=== PATIENT | male | born 1960 | race Caucasian/White ===

== ENCOUNTER 2017-08-09 16:45 | Emergency (ER) | payer BC ==
[~2017-08-09] VITALS: Ht 175.3 cm; Wt 97.5 kg
[2017-08-09] MEDS ORDERED: TETANUS,DIPTH,PERTUSS P/F (BOOSTRIX) 0.5 ML VIAL IM STA (17:19)
[2017-08-09] MEDS ORDERED: LIDOCAINE 1% INJ 20 ML (XYLOCAINE) VIAL INJ STA (17:19)
--- NOTE | 2017-08-09 17:42 | Diagnostic Imaging Report ---
INDICATION: Laceration. FINDINGS: No retained opaque foreign body or fracture. There are soft tissue irregularities at the dorsum of the distal phalanx of the second finger with abnormal elevation and angulation of the nail. Tiny radiopacity projecting dorsal to the distal tip of the distal phalanx may reflect a very small flake of avulsed cortical bone. IMPRESSION: There may be a small flake of avulsed cortical bone of well less than 1 mm thickness along the dorsal aspect terminal tuft of the second finger where there is overlying soft tissue and nail injury. No findings suggestive of a retained metallic foreign body, and no articular involvement. Dictated by: Dictated on workstation # [id number]
[2017-08-09] MEDS ORDERED: SULF1TAB35 PO (18:41)
--- NOTE | 2017-08-09 18:41 | ED Upper Extremity ---
General Chief Complaint: Upper Extremity Stated Complaint: LT 2ND FINGER LACERATION BY TABLE SAW Nursing Triage Note: PT HAS AVULSED R FIRST FINGER NAIL AND PAIN IN FINGER AREA FROM TABLE SAW WOOD HITTING FINGER. Nursing Sepsis Screen: No Definite Risk Source: patient Exam Limitations: no limitations History of Present Illness Time seen by provider: 17:19 Initial Comments This 56-year-old gentleman presents to the emergency room with an avulsion of the left thumb nail. The finger was struck by a board that jumped while using a power saw. Bleeding is under control. The nail is still attached on the lateral edge of the nail bed. Patient had a brief syncopal episode after the event but denies any head injury. Allergies and Home Medications Allergies Coded Allergies: Penicillins (Verified Allergy, Unknown, 08/09/17) Home Medications Sulfamethoxazole/Trimethoprim 1 Each Tablet, 1 EACH PO BID, #14 Prescribed by: ARUNA IVAN on 08/09/17 9660 Constitutional: no symptoms reported EENTM: no symptoms reported Respiratory: no symptoms reported Cardiovascular: no symptoms reported Gastrointestinal: no symptoms reported Genitourinary: no symptoms reported Musculoskeletal: see HPI Skin: see HPI Psychiatric/Neurological: See HPI Past Afugtsy-Xuxkfa-Sfwldp Hx Patient Social History Alcohol Use: Denies Use Recreational Drug Use: No Smoking Status: Never a Smoker Recent Foreign Travel: No Contact w/Someone Who Travel: No Recent Infectious Disease Expo: No Recent Hopitalizations: No Physical Abuse: No Sexual Abuse: No Immunizations Up To Date Tetanus Booster (TDap): More than 5yrs Seasonal Allergies Seasonal Allergies: Yes Surgeries History of Surgeries: No Respiratory History of Respiratory Disorde: No Cardiovascular History of Cardiac Disorders: No Neurological History of Neurological Disord: No Reproductive System Hx Reproductive Disorders: No Genitourinary History of Genitourinary Disor: No Gastrointestinal History of Gastrointestinal Di: No Musculoskeletal History of Musculoskeletal Dis: No Endocrine History of Endocrine Disorders: No HEENT History of HEENT Disorders: No Cancer History of Cancer: No Psychosocial History of Psychiatric Problem: No Suicide Risk Score: 0 Integumentary History of Skin or Integumenta: No Physical Exam Vital Signs Vital Sign - Last 12Hours 08/09/17 17:00 Temp 97.4 Pulse 77 Resp 18 B/P (MAP) 122/75 Pulse Ox 95 Capillary Refill : Less Than 3 Seconds General Appearance: WD/WN, no apparent distress HEENT: normal ENT inspection Cardiovascular: regular rate, rhythm, no edema, no murmur Respiratory: normal breath sounds, no respiratory distress Wrist: Yes normal inspection, Yes no evidence of injury Hand: Left (partial avulsion of the left thumb nail. The medial aspect has been pulled from the bed but the lateral aspect remains intact. The nail is lifted from the base. 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 Skin at the base of thumb was then cleaned with alcohol. Digital block was then performed on the thumb with approximately 8 mL of lidocaine. wound was irrigated with a liter of normal saline. Betadine prep was applied. Nail base was reinserted into the nail bed. Nail was secured bilaterally with 3-0 Vicryl sutures, one on each side. Wound was then dressed with nonstick dressing by nursing staff. Progress/Results/Core Measures Results/Orders Vital Signs/I&O Blood Pressure Mean: 91 Diagnostic Imaging Diagonstic Imaging: Xray Plain Films/CT/US/NM/MRI: hand Comments x-ray viewed by me and report reviewed. See report below: NAME: KAREY [facility]ILLON [facility] REC#: [id number] PT STATUS: DEP ER : 1960 PHYSICIAN: FLORA LEE [facility] ADMIT DATE: 08/09/17/ER Signed Date of Exam: 08/09/17 FINGER(S) INDICATION: Laceration. FINDINGS: No retained opaque foreign body or fracture. There are soft tissue irregularities at the dorsum of the distal phalanx of the second finger with abnormal elevation and angulation of the nail. Tiny radiopacity projecting dorsal to the distal tip of the distal phalanx may reflect a very small flake of avulsed cortical bone. IMPRESSION: There may be a small flake of avulsed cortical bone of well less than 1 mm thickness along the dorsal aspect terminal tuft of the second finger where there is overlying soft tissue and nail injury. No findings suggestive of a retained metallic foreign body, and no articular involvement. Dictated by: Dictated on workstation # [id number] Dict: 08/09/17 1734 Trans: 08/09/171945 Interpreted by: YE RIOJAS Electronically signed by: YE RIOJAS 08/09/171945 Departure Impression Impression: Primary Impression: Nail avulsion, finger Qualified Codes: S61.309A - Unspecified open wound of unspecified finger with damage to nail, initial encounter Additional Impression: Closed fracture of tuft of distal phalanx of finger Disposition: 01 HOME, SELF-CARE Condition: Improved Departure-Patient Inst. Decision time for Depature: 18:30 Referrals: SUYAPA GLEZ MD (PCP/Family) Primary Care Physician Patient Instructions: Nail Avulsion Add. Discharge Instructions: Keep the wound clean and dry except for normal handwashing and showering. Avoid submersion for the first 2 weeks. Complete your antibiotic as prescribed. You may use ibuprofen up to 800 mg every 8 hours as needed for pain. Add Tylenol (acetaminophen) up to 1000 mg every 6 hours as needed for additional pain relief. You may apply antibiotic ointment and sterile dressing to cover whenever needed. You may additionally apply a splint to protect the nail. Antibiotic ointment or Vaseline will help prevent the dressing from sticking to the wound. Your stitches will dissolve in 1-2 weeks. Protect your nail from further disruption for at least 2 weeks to allow the new nail to grow and without disruption. The old nail will eventually slough off. Return to care if you notice symptoms of infection such as increasing redness, increasing swelling, puslike drainage, worsening pain, or fever. Icing in 20 minute intervals and elevation should help with pain and swelling. All discharge instructions reviewed with patient and/or family. Voiced understanding. Scripts Sulfamethoxazole/Trimethoprim (Bactrim Ds Tablet) 1 Each Tablet 1 EACH PO BID, #14 TAB Prov: ARUNA RUSSO MD 08/09/17 ARUNA RUSSO MD Aug 09, 2017 18:41
[2017-08-09 18:50] VITALS: BP 122/72
== END 2017-08-09 18:50 | disposition home or self-care (01) ==
LOC: EDUNIT# 16:45 → ER 16:47
DX: S62.522A Displaced fracture of distal phalanx of left thumb, initial encounter for closed fracture (principal); W23.1XXA Caught, crushed, jammed, or pinched between stationary objects, initial encounter
CPT/HCPCS: 73140; 90471; 90715

== ENCOUNTER 2019-12-30 08:25 | Outpatient (RCR) | payer BC ==
[~2019-12-30 08:25] MED LIST: SULF1TAB35 PO
== END 2020-01-13 10:58 | disposition home or self-care (01) ==
PROVIDERS: ATTEND Nurse Practitioner Family
DX: M54.12 Radiculopathy, cervical region (principal); K21.9 Gastro-esophageal reflux disease without esophagitis; R01.1 Cardiac murmur, unspecified

== ENCOUNTER 2021-05-19 14:26 | Emergency (ER) | payer SELFPAY ==
[~2021-05-19] VITALS: Ht 175.2 cm; Wt 100.0 kg
[~2021-05-19 14:26] MED LIST changes: -SULF1TAB35 PO; +SULF1TAB38 PO
[2021-05-19] MEDS ORDERED: ASPIRIN 81 MG CHEW (CHILDREN'S ASA) PO ONE (14:45)
[2021-05-19 14:55] LABS: BASOPHILS % (AUTO) 1 % (0-10); EOSINOPHILS % (AUTO) 0 % (0-10); HEMATOCRIT 44 % (40-54); HEMOGLOBIN 14.7 g/dL (13.3-17.7); LYMPHOCYTES # (AUTO) 0.9 10^3/uL (1.0-4.0); LYMPHOCYTES % (AUTO) 14 % (12-44); MEAN CORPUSCULAR HEMOGLOBIN 29 pg (25-34); MEAN CORPUSCULAR HGB CONC 33 g/dL (32-36); MEAN CORPUSCULAR VOLUME 88 fL (80-99); MEAN PLATELET VOLUME 8.5 fL (9.0-12.2); MONOCYTES # (AUTO) 0.9 10^3/uL (0.0-1.0); MONOCYTES % (AUTO) 14 % (0-12); NEUTROPHILS # (AUTO) 4.6 10^3/uL (1.8-7.8); NEUTROPHILS % (AUTO) 71 % (42-75); PLATELET COUNT 215 10^3/uL (130-400); WHITE BLOOD COUNT 6.6 10^3/uL (4.3-11.0)
[2021-05-19] MEDS ORDERED: LACTATED RINGERS 1,000 ML IV SCH (15:00)
[2021-05-19] MEDS ORDERED: ONDANSETRON 4 MG/2 ML (SDV) Z0FRAN IVP ONE (15:00)
[2021-05-19 15:03] LABS: ALBUMIN 4.4 GM/DL (3.2-4.5)
[2021-05-19 15:04] LABS: CHLORIDE 106 MMOL/L (98-107); POTASSIUM 3.8 MMOL/L (3.6-5.0); SODIUM 140 MMOL/L (135-145)
[2021-05-19 15:06] LABS: GLUCOSE 159 MG/DL (70-105); TOTAL PROTEIN 6.9 GM/DL (6.4-8.2)
[2021-05-19 15:07] LABS: CARBON DIOXIDE 21 MMOL/L (21-32); INR 1.1 (0.8-1.4); PROTHROMBIN TIME PATIENT 14.6 SEC (12.2-14.7)
[2021-05-19 15:08] LABS: BILIRUBIN,TOTAL 1.1 MG/DL (0.1-1.0)
[2021-05-19 15:09] LABS: ALKALINE PHOSPHATASE 63 U/L (40-136); CREATININE SERUM 1.15 MG/DL (0.60-1.30); GFR ESTIMATED 65
[2021-05-19 15:11] LABS: BUN/CREATININE RATIO 9
[2021-05-19 15:12] LABS: ALANINE AMINOTRANSFERASE 27 U/L (0-55)
--- NOTE | 2021-05-19 15:24 | Diagnostic Imaging Report ---
INDICATION: Chest pain. COMPARISON: Exam compared with two-view radiograph of the chest of 09/25/2012. FINDINGS: The heart size is increased. There is vascular congestion centrally. There is no pulmonary edema or pneumonia, however. No effusion or pneumothorax. IMPRESSION: Increased heart size and central venous distention but no burt edema, pleural fluid, or pneumonia. Dictated by: Dictated on workstation # [id number]
--- NOTE | 2021-05-19 16:02 | ED General ---
General Chief Complaint: General Problems/Pain Stated Complaint: COVID SYMPTOMS Nursing Triage Note: Pt wheeled into ER with complaint of Malaise, Diaphoresis, Nausea x1 day. 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 After getting the chair home and sitting in a bit, I started feeling like shit. The chair smelt like chemicals or had a mold smell to it'. Pt denies chest pain or being in contact with covid patient. Pt is extremely diaphoretic upon arrival. Source of Information: Patient Exam Limitations: No Limitations (REGINO ALBARRAN APRN) History of Present Illness Date Seen by Provider: May 19, 2021 Time Seen by Provider: 15:57 Initial Comments Sent to ER by Dr. Glez's office where he presented with malaise diaphoresis and nausea for 1 day. Timing/Duration: 1-2 Days Severity: Moderate Associated Systoms: Cough (REGINO ALBARRAN APRN) Allergies and Home Medications Allergies Coded Allergies: Penicillins (Verified Allergy, Unknown, 08/09/17) Home Medications Sulfamethoxazole/Trimethoprim 1 Each Tablet, 1 EACH PO BID Prescribed by: ARUNA IVAN on 08/09/17 1841 Patient Home Medication List Home Medication List Reviewed: Yes (REGINO ALBARRAN APRN) Review of Systems Review of Systems Constitutional: see HPI EENTM: see HPI Respiratory: see HPI Cardiovascular: no symptoms reported Genitourinary: no symptoms reported Musculoskeletal: no symptoms reported Skin: no symptoms reported Psychiatric/Neurological: No Symptoms Reported Hematologic/Lymphatic: No Symptoms Reported Immunological/Allergic: no symptoms reported (REGINO ALBARRAN APRN) Past Dnybiwf-Flvjyu-Qqptwp Hx Patient Social History Tobacco Use?: No Use of E-Cig and/or Vaping dev: No Substance use?: No Alcohol Use?: No Pt feels they are or have been: No (REGINO ALBARRAN APRN) Immunizations Up To Date Tetanus Booster (TDap): More than 5yrs Influenza Vaccine Up-to-Date: No; Not Current (REGINO ALBARRAN APRN) Seasonal Allergies Seasonal Allergies: Yes (REGINO ALBARRAN APRN) Past Medical History Surgeries: No Respiratory: No Cardiac: No Neurological: No Reproductive Disorders: No Genitourinary: No Gastrointestinal: No Musculoskeletal: No Endocrine: No HEENT: No Cancer: No Psychosocial: No Integumentary: No (REGINO ALBARRAN APRN) Physical Exam Vital Signs Vital Signs - First Documented 05/19/21 14:36 Temp 37.2 Pulse 77 Resp 20 B/P (MAP) 118/90 (99) Pulse Ox 96 O2 Delivery Room Air (ARUNA RUSSO MD) Vital Signs Capillary Refill : Less Than 3 Seconds (REGINO ALBARRAN APRN) Height, Weight, BMI Height: 5'9.00" Weight: 215lbs. oz. 97.324359cg; 32.00 BMI Method:Stated General Appearance: No Apparent Distress, WD/WN, Other (Feels much better at this time was diaphoretic on arrival likely secondary to his fever breaking. 97% on room air. He is interested in Regeneron monoclonal antibody. I will give him information on this in the form of a fact sheet, we will arrange for Regeneron infusion on Sunday.) Eyes: Bilateral Eye Normal Inspection, Bilateral Eye PERRL, Bilateral Eye EOMI HEENT: PERRL/EOMI, TMs Normal Neck: Full Range of Motion, Normal Inspection Respiratory: No Accessory Muscle Use, No Respiratory Distress Cardiovascular: Regular Rate, Rhythm, Normal Peripheral Pulses Gastrointestinal: Normal Bowel Sounds, Non Tender, Soft Extremity: Normal Capillary Refill Neurologic/Psychiatric: Alert, Oriented x3 Skin: Normal Color, Warm/Dry (REGINO ALBARRAN APRN) Progress/Results/Core Measures Suspected Sepsis SIRS Temperature: Pulse: 77 Respiratory Rate: 20 Laboratory Tests 05/19/21 14:40: White Blood Count 6.6 Blood Pressure 118 /90 Mean: 99 Laboratory Tests 05/19/21 14:40: Creatinine 1.15, INR Comment 1.1, Platelet Count 215, Total Bilirubin 1.1H (REGINO ALBARRAN APRN) Results/Orders Lab Results Laboratory Tests Test 05/19/21 14:40 Range/Units White Blood Count 6.6 4.3-11.0 10^3/uL Red Blood Count 5.03 4.30-5.52 10^6/uL Hemoglobin 14.7 13.3-17.7 g/dL Hematocrit 44 40-54 % Mean Corpuscular Volume 88 80-99 fL Mean Corpuscular Hemoglobin 29 25-34 pg Mean Corpuscular Hemoglobin Concent 33 32-36 g/dL Red Cell Distribution Width 13.2 10.0-14.5 % Platelet Count 215 130-400 10^3/uL Mean Platelet Volume 8.5 L 9.0-12.2 fL Immature Granulocyte % (Auto) 0 % Neutrophils (%) (Auto) 71 42-75 % Lymphocytes (%) (Auto) 14 12-44 % Monocytes (%) (Auto) 14 H 0-12 % Eosinophils (%) (Auto) 0 0-10 % Basophils (%) (Auto) 1 0-10 % Neutrophils # (Auto) 4.6 1.8-7.8 10^3/uL Lymphocytes # (Auto) 0.9 L 1.0-4.0 10^3/uL Monocytes # (Auto) 0.9 0.0-1.0 10^3/uL Eosinophils # (Auto) 0.0 0.0-0.3 10^3/uL Basophils # (Auto) 0.0 0.0-0.1 10^3/uL Immature Granulocyte # (Auto) 0.0 0.0-0.1 10^3/uL Prothrombin Time 14.6 12.2-14.7 SEC INR Comment 1.1 0.8-1.4 Activated Partial Thromboplast Time 24 24-35 SEC Sodium Level 140 135-145 MMOL/L Potassium Level 3.8 3.6-5.0 MMOL/L Chloride Level 106 98-107 MMOL/L Carbon Dioxide Level 21 21-32 MMOL/L Anion Gap 13 5-14 MMOL/L Blood Urea Nitrogen 10 7-18 MG/DL Creatinine 1.15 0.60-1.30 MG/DL Estimat Glomerular Filtration Rate 65 BUN/Creatinine Ratio 9 Glucose Level 159 H 70-105 MG/DL Calcium Level 9.0 8.5-10.1 MG/DL Corrected Calcium 8.7 8.5-10.1 MG/DL Magnesium Level 2.0 1.6-2.4 MG/DL Total Bilirubin 1.1 H 0.1-1.0 MG/DL Aspartate Amino Transf (AST/SGOT) 18 5-34 U/L Alanine Aminotransferase (ALT/SGPT) 27 0-55 U/L Alkaline Phosphatase 63 40-136 U/L Myoglobin 31.8 10.0-92.0 NG/ML Troponin I < 0.028 <0.028 NG/ML Total Protein 6.9 6.4-8.2 GM/DL Albumin 4.4 3.2-4.5 GM/DL SARS-CoV-2 RNA (RT-PCR) Detected H Not Detecte (ARUNA RUSSO MD) Medications Given in ED Current Medications Medications Dose Ordered Sig/Abby Route Start Time Stop Time Status Last Admin Dose Admin Aspirin 324 mg ONCE ONCE PO 05/19/21 14:45 05/19/21 14:46 DC 05/19/21 14:55 324 MG Ondansetron HCl 8 mg ONCE ONCE IVP 05/19/21 15:00 05/19/21 15:01 DC 05/19/21 14:55 8 MG (ARUNA RUSSO MD) Vital Signs/I&O 05/19/21 05/19/21 14:36 16:07 Temp 37.2 Pulse 77 86 Resp 20 20 B/P (MAP) 118/90 (99) 115/76 Pulse Ox 96 96 O2 Delivery Room Air Room Air (ARUNA RUSSO MD) Vital Signs/I&O Capillary Refill : Less Than 3 Seconds (REGINO ALBARRAN APRN) Blood Pressure Mean: 99 Departure Communication (Admissions) EKG is normal sinus rhythm at 75 normal intervals no ectopy no ST segment change (REGINO ALBARRAN APRN) Impression Primary Impression: COVID-19 Disposition: 01 HOME, SELF-CARE Condition: Stable Departure-Patient Inst. Decision time for Depature: 16:01 (REGINO ALBARRAN APRN) Referrals: SUYAPA GLEZ MD (PCP) Primary Care Physician Patient Instructions: COVID-19 (DC), REGEN-COV (casirivimab and imdevimab) FDA Fact Sheet Add. Discharge Instructions: 1. Tylenol and ibuprofen for pain and fever control. Rest. Quarantine for 10 days. Scheduling department will call you on Sunday for an appointment time for your Regeneron infusion. Return to ER for any shortness of breath in the meantime. ATTENDING PHYSICIAN NOTE: I was physically present as attending physician in the emergency department during the care of this patient, but I was not directly involved in the decision making or delivery of care for this patient. (BRUEGGEMANN,REGINO HERNANDEZ APRN May 19, 2021 16:02 ARUNA RUSSO MD May 19, 2021 19:48
[2021-05-19 16:07] VITALS: BP 115/76
== END 2021-05-19 16:07 | disposition home or self-care (01) ==
LOC: EDUNIT# 14:26 → ER 14:27
DX: U07.1 COVID-19 (principal)
CPT/HCPCS: 36415; 71045; 80053; 83735; 83874; 84484; 85025; 85610; 85730; 87636; 93005; 93041

== ENCOUNTER 2021-05-29 16:49 | Inpatient (IN) | payer SELFPAY ==
[~2021-05-29] VITALS: Ht 175 cm; Wt 102.0 kg
[2021-05-29] MEDS ORDERED: IBUPROFEN 800 MG (MOTRIN) TAB PO ONE (17:30)
[2021-05-29] MEDS ORDERED: ONDANSETRON 4 MG/2 ML (SDV) Z0FRAN IVP ONE (17:30)
[2021-05-29] MEDS ORDERED: LACTATED RINGERS 1,000 ML IV SCH (17:30)
[2021-05-29] MEDS ORDERED: KETOROLAC 30 MG/ML VIAL IVP ONE (17:30)
--- NOTE | 2021-05-29 17:30 | ED Cough/URI ---
General Chief Complaint: Respiratory Problems Stated Complaint: COVID POSITIVE Source: patient Exam Limitations: no limitations History of Present Illness Date Seen by Provider: May 29, 2021 Time Seen by Provider: 17:28 Initial Comments gentleman who is Covid positive (unvaccinated against covid) diagnosed here on Sunday the by me. He was then scheduled for Regeneron infusion on Sunday the . He did not show up to that appointment. He presents to ER today because he is not getting any better despite his primary care provider having put him on hydroxychloroquine. He has ongoing headaches nausea body aches and cough. He took a gram of Tylenol at 3 and 400 mg of Motrin at 4. Timing/Duration: constant Severity/Quality: productive cough Prior Episodes/Possible Cause: no prior episodes Associated Symptoms: cough, shortness of breath Allergies and Home Medications Allergies Coded Allergies: Penicillins (Verified Allergy, Unknown, 08/09/17) Home Medications Cefuroxime Axetil 250 Mg Tablet, 250 MG PO BID Prescribed by: REGINO ALBARRAN on 05/29/211834 Dexamethasone 6 Mg Tablet, 6 MG PO DAILY Prescribed by: REGINO ALBARRAN on 05/29/211837 Sulfamethoxazole/Trimethoprim 1 Each Tablet, 1 EACH PO BID Prescribed by: ARUNA IVAN on 08/09/17 1841 Patient Home Medication List Home Medication List Reviewed: Yes Review of Systems Review of Systems Constitutional: see HPI, chills, fever, malaise, weakness EENTM: see HPI Respiratory: see HPI, cough Cardiovascular: no symptoms reported Genitourinary: no symptoms reported Musculoskeletal: no symptoms reported Skin: no symptoms reported Psychiatric/Neurological: No Symptoms Reported Hematologic/Lymphatic: No Symptoms Reported Immunological/Allergic: no symptoms reported Past Jhgybpb-Vdzxwn-Ggdlxe Hx Immunizations Up To Date Tetanus Booster (TDap): More than 5yrs Seasonal Allergies Seasonal Allergies: Yes Past Medical History Surgeries: No Respiratory: No Cardiac: No Neurological: No Reproductive Disorders: No Genitourinary: No Gastrointestinal: No Musculoskeletal: No Endocrine: No HEENT: No Cancer: No Psychosocial: No Integumentary: No Physical Exam Vital Signs - First Documented 05/29/21 17:20 Temp 39.3 Pulse 92 Resp 20 B/P (MAP) 136/83 (100) Pulse Ox 93 O2 Delivery Room Air Capillary Refill : Height: 5'9.00" Weight: 215lbs. oz. 97.000243bi; 32.00 BMI Method:Stated General Appearance: WD/WN, no apparent distress, other (Appears to feel unwell but is nontoxic-appearing with a heart rate of 95 and an oxygen saturation of 93 to 94% on room air.) HEENT: PERRL/EOMI, normal ENT inspection Neck: non-tender, full range of motion Respiratory: no respiratory distress, no accessory muscle use Cardiovascular: regular rate, rhythm, no murmur Gastrointestinal: normal bowel sounds, non tender, soft Neurologic/Psychiatric: alert, normal mood/affect, oriented x 3 Skin: normal color, warm/dry Progress/Results/Core Measures Suspected Sepsis SIRS Temperature: Pulse: Respiratory Rate: Laboratory Tests 05/29/21 17:30: White Blood Count 7.6 Blood Pressure / Mean: Laboratory Tests 05/29/21 17:30: Creatinine 0.95, Platelet Count 231, Total Bilirubin 0.8 Results/Orders Lab Results Laboratory Tests Test 05/29/21 17:30 Range/Units White Blood Count 7.6 4.3-11.0 10^3/uL Red Blood Count 4.43 4.30-5.52 10^6/uL Hemoglobin 12.8 L 13.3-17.7 g/dL Hematocrit 39 L 40-54 % Mean Corpuscular Volume 88 80-99 fL Mean Corpuscular Hemoglobin 29 25-34 pg Mean Corpuscular Hemoglobin Concent 33 32-36 g/dL Red Cell Distribution Width 13.3 10.0-14.5 % Platelet Count 231 130-400 10^3/uL Mean Platelet Volume 8.8 L 9.0-12.2 fL Immature Granulocyte % (Auto) 1 % Neutrophils (%) (Auto) 78 H 42-75 % Lymphocytes (%) (Auto) 18 12-44 % Monocytes (%) (Auto) 4 0-12 % Eosinophils (%) (Auto) 0 0-10 % Basophils (%) (Auto) 0 0-10 % Neutrophils # (Auto) 5.9 1.8-7.8 10^3/uL Lymphocytes # (Auto) 1.4 1.0-4.0 10^3/uL Monocytes # (Auto) 0.3 0.0-1.0 10^3/uL Eosinophils # (Auto) 0.0 0.0-0.3 10^3/uL Basophils # (Auto) 0.0 0.0-0.1 10^3/uL Immature Granulocyte # (Auto) 0.0 0.0-0.1 10^3/uL Sodium Level 138 135-145 MMOL/L Potassium Level 3.8 3.6-5.0 MMOL/L Chloride Level 103 98-107 MMOL/L Carbon Dioxide Level 23 21-32 MMOL/L Anion Gap 12 5-14 MMOL/L Blood Urea Nitrogen 20 H 7-18 MG/DL Creatinine 0.95 0.60-1.30 MG/DL Estimat Glomerular Filtration Rate 81 BUN/Creatinine Ratio 21 Glucose Level 115 H 70-105 MG/DL Calcium Level 8.4 L 8.5-10.1 MG/DL Corrected Calcium 8.9 8.5-10.1 MG/DL Total Bilirubin 0.8 0.1-1.0 MG/DL Aspartate Amino Transf (AST/SGOT) 50 H 5-34 U/L Alanine Aminotransferase (ALT/SGPT) 37 0-55 U/L Alkaline Phosphatase 45 40-136 U/L C-Reactive Protein High Sensitivity 11.45 H 0.00-0.50 MG/DL Total Protein 6.0 L 6.4-8.2 GM/DL Albumin 3.4 3.2-4.5 GM/DL Procalcitonin 0.33 H <0.10 NG/ML My Orders Orders - REGINO ALBARRAN WOOD SCIENCE PROFESSOR Cbc With Automated Diff (05/29/21 17:19) Comprehensive Metabolic Panel (05/29/21 17:19) Procalcitonin (Pct) (05/29/21 17:19) Hs C Reactive Protein (05/29/21 17:19) Chest 1 View, Ap/Pa Only (05/29/21 17:19) Ed Iv/Invasive Line Start (05/29/21 17:19) Ketorolac Injection (Toradol Injection) (05/29/21 17:30) Lactated Ringers (Lr 1000 Ml Iv Solution (05/29/21 17:30) Ondansetron Injection (Zofran Injectio (05/29/21 17:30) Ibuprofen Tablet (Motrin Tablet) (05/29/21 17:30) Ceftriaxone (Rocephin) (05/29/21 18:30) Dexamethasone Tablet (Decadron Tablet) (05/29/21 18:45) Medications Given in ED Current Medications Medications Dose Ordered Sig/Abby Route Start Time Stop Time Status Last Admin Dose Admin Ceftriaxone Sodium 1000 mg/ Sterile Water 10 ml @ 200 mls/hr ONCE ONCE IV 05/29/21 18:30 05/29/21 18:32 DC 05/29/21 18:42 200 MLS/HR Ibuprofen 800 mg ONCE ONCE PO 05/29/21 17:30 05/29/21 17:31 DC 05/29/21 17:33 800 MG Ketorolac Tromethamine 15 mg ONCE ONCE IVP 05/29/21 17:30 05/29/21 17:31 DC 05/29/21 17:32 15 MG Ondansetron HCl 8 mg ONCE ONCE IVP 05/29/21 17:30 05/29/21 17:31 DC 05/29/21 17:31 8 MG Vital Signs/I&O 05/29/21 05/29/21 17:20 17:33 Temp 39.3 39.3 Pulse 92 Resp 20 B/P (MAP) 136/83 (100) Pulse Ox 93 O2 Delivery Room Air Capillary Refill : Departure Communication (Admissions) 1840-oxygen saturation 90% with good waveform on room air at rest. This will drop with any exertion and he will need to be admitted for supplemental oxygen Decadron and remdesivir. Impression Primary Impression: COVID-19 Additional Impression: Hypoxia Disposition: ADMITTED INPATIENT Condition: Stable Admissions Decision to Admit Reason: Admit from ER (General) Decision to Admit/Date: May 29, 2021 Time/Decision to Admit Time: 18:50 Departure-Patient Inst. Decision time for Depature: 17:30 Referrals: SUYAPA GLEZ MD (PCP/Family) Primary Care Physician Patient Instructions: COVID-19 ED REGINO ALBARRAN WOOD SCIENCE PROFESSOR May 29, 2021 17:30
[2021-05-29 17:48] LABS: BASOPHILS % (AUTO) 0 % (0-10); EOSINOPHILS % (AUTO) 0 % (0-10); HEMATOCRIT 39 % (40-54); HEMOGLOBIN 12.8 g/dL (13.3-17.7); LYMPHOCYTES # (AUTO) 1.4 10^3/uL (1.0-4.0); LYMPHOCYTES % (AUTO) 18 % (12-44); MEAN CORPUSCULAR HEMOGLOBIN 29 pg (25-34); MEAN CORPUSCULAR HGB CONC 33 g/dL (32-36); MEAN CORPUSCULAR VOLUME 88 fL (80-99); MEAN PLATELET VOLUME 8.8 fL (9.0-12.2); MONOCYTES # (AUTO) 0.3 10^3/uL (0.0-1.0); MONOCYTES % (AUTO) 4 % (0-12); NEUTROPHILS # (AUTO) 5.9 10^3/uL (1.8-7.8); NEUTROPHILS % (AUTO) 78 % (42-75); PLATELET COUNT 231 10^3/uL (130-400); WHITE BLOOD COUNT 7.6 10^3/uL (4.3-11.0)
[2021-05-29 17:55] LABS: ALBUMIN 3.4 GM/DL (3.2-4.5)
[2021-05-29 17:56] LABS: POTASSIUM 3.8 MMOL/L (3.6-5.0)
[2021-05-29 17:57] LABS: CALCIUM 8.4 MG/DL (8.5-10.1)
[2021-05-29 18:00] LABS: BILIRUBIN,TOTAL 0.8 MG/DL (0.1-1.0)
[2021-05-29 18:02] LABS: CREATININE SERUM 0.95 MG/DL (0.60-1.30)
[2021-05-29] MEDS ORDERED: cefTRIAXone 1,000 MG in WATER (STERILE) FOR INJECTION 10 ML IV ONE (18:30)
[2021-05-29] MEDS ORDERED: CEFU250T80 PO (18:35)
[2021-05-29] MEDS ORDERED: DEXA6TAB6 PO (18:38)
--- NOTE | 2021-05-29 18:40 | Diagnostic Imaging Report ---
INDICATION: 60-year-old male with chest pain, Covid positive. COMPARISON: 05/19/2021. EXAMINATION: Single view chest. FINDINGS: The cardiac contour is normal. There are increasing patchy bilateral alveolar infiltrates primarily perihilar and bilateral lower lobes. There is no effusion or pneumothorax. Soft tissues and bony thorax are normal. There is some prominence of the central vascularity. IMPRESSION: Patchy bilateral infiltrates in the mid and lower portions of both lungs, the pattern of which is in keeping with the patient's clinical history of Covid. Underlying central venous congestion is suggested but accentuated by the portable technique. Dictated by: Dictated on workstation # [id number]
[2021-05-29] MEDS ORDERED: dexAMETHasone 6 MG TAB (DECADRON) PO SCH (18:45)
[2021-05-29 20:48] VITALS: BP 113/68
[2021-05-29] MEDS ORDERED: ONDANSETRON 4 MG/2 ML (SDV) Z0FRAN IV PRN (21:15)
[2021-05-29] MEDS ORDERED: CATHETER FLUSH 10 ML SYR IV PRN (21:15)
[2021-05-29] MEDS ORDERED: IBUPROFEN 600 MG (MOTRIN) TAB PO PRN (21:30)
[2021-05-29 22:06] VITALS: BP 136/83
[2021-05-29] MEDS ORDERED: RT-ALBUTEROL HFA 8.5 GM INHALER IH PRN (22:15)
[2021-05-29] MEDS: DOXYCYCLINE INJECTION 100 MG in NS (IVPB) 100 ML IV SCH (22:44)
[2021-05-29] MEDS: CATHETER FLUSH 10 ML SYR IV SCH (22:44)
[2021-05-29] MEDS: ENOXAPARIN 40 MG/0.4 ML (LOVENOX) SYR SC SCH (22:44)
[2021-05-29 23:30] VITALS: BP 114/71
[2021-05-30 04:00] VITALS: BP 135/67
[2021-05-30] MEDS: CATHETER FLUSH 10 ML SYR IV SCH ×3 (05:11→20:48)
[2021-05-30 08:00] VITALS: BP 119/66
[2021-05-30] MEDS ORDERED: REMDESIVIR 200 MG/NS 250 ML IVPB IV ONE ×2 (09:00)
[2021-05-30] MEDS: DOXYCYCLINE INJECTION 100 MG in NS (IVPB) 100 ML IV SCH ×2 (09:28→20:48)
[2021-05-30] MEDS: PANTOPRAZOLE 40 MG (PROTONIX) VIAL IV SCH (09:28)
[2021-05-30] MEDS: dexAMETHasone 6 MG TAB (DECADRON) PO SCH (09:28)
--- NOTE | 2021-05-30 11:45 | History & Physical-Hospitalist ---
History of Present Illness HPI/Chief Complaint Pt is a 60yoCM with a no past medical history who presented to the ER due to SOB. He became symptomatic on 05/19 and was diagnosed with COVID in the ER. He was referred for Regeneron but did not keep that appointment. He instead was prescribed hydroxychloroquine by his primary care provider. He continued to worsen at home. He denies fever but complaints of worsening SOB, cough, headache, aches, nausea, and loss of taste. He is unvaccinated against COVID. Source: patient Date Seen 05/30/21 Time Seen by a Provider: 11:45 Attending Physician Jana Yousif MD PCP Carter Turner MD Referring Physician Date of Admission May 29, 2021 at 18:48 Home Medications & Allergies Home Medications Reviewed patient Home Medication Reconciliation performed by pharmacy medication reconciliations digital cartographic technician and/or nursing. Patients Allergies have been reviewed. Allergies Allergies Coded Allergies Penicillins (Verified Allergy, Unknown, 08/09/17) Past K[place]aur[place]-Ecsecc-Oaphgk Hx Patient Social History Tobacco Use?: No Smoking Status: Former Smoker Smokeless Tobacco Frequency: Never a User Use of E-Cig and/or Vaping dev: No Substance use?: No Alcohol Use?: No Pt feels they are or have been: No Immunizations Up To Date First/Initial COVID19 Vaccinat: NONE Tetanus Booster (TDap): More Than 5 Years Seasonal Allergies Seasonal Allergies: Yes Current Status Advance Directives: No Communicates: Verbally Primary Language: Beninese Preferred Spoken Language: Beninese Is interpretation needed?: No Implanted or Applied Medical D: None Review of Systems Constitutional: No fever; malaise, weakness EENTM: no symptoms reported Respiratory: cough, dyspnea on exertion, short of breath Cardiovascular: No chest pain, No edema, No palpitations Gastrointestinal: No abdominal pain, No constipation, No diarrhea; loss of appetite; No nausea, No vomiting Genitourinary: no symptoms reported Musculoskeletal: muscle pain, muscle cramps Skin: no symptoms reported Psychiatric/Neurological: No Symptoms Reported Physical Exam Physical Exam Vital Signs Vital Signs - First Documented 05/29/21 05/29/21 17:20 22:06 Temp 39.3 Pulse 92 Resp 20 B/P (MAP) 136/83 (100) Pulse Ox 93 O2 Delivery Room Air FiO2 21 Capillary Refill : Less Than 3 Seconds Height, Weight, BMI Height: 5'9.00" Weight: 215lbs. oz. 97.990108cv; 33.30 BMI Method:Stated General Appearance: No Apparent Distress, WD/WN, Obese HEENT: PERRL/EOMI, Moist Mucous Membranes; No Scleral Icterus (L), No Scleral Icterus (R) Neck: Normal Inspection, Supple Respiratory: No Accessory Muscle Use, No Respiratory Distress; No Crackles; Decreased Breath Sounds; No Rhonci Cardiovascular: Regular Rate, Rhythm, No Murmur Gastrointestinal: Normal Bowel Sounds, Non Tender, Soft Extremity: Normal Capillary Refill, No Calf Tenderness, No Pedal Edema Neurologic/Psychiatric: Alert, Oriented x3, Normal Mood/Affect Skin: Normal Color, Warm/Dry Results Results/Procedures Labs Laboratory Tests 05/29/21 17:30 Patient resulted labs reviewed. Imaging: Reviewed Imaging Report Imaging [facility] [place], [place] NAME: KAREY DHILLON [facility] REC#: [id number] PT STATUS: REG ER : 1960 PHYSICIAN: REGINO ALBARRAN APRN ADMIT DATE: 05/29/21/ER Signed Date of Exam:05/29/21 CHEST 1 VIEW, AP/PA ONLY INDICATION: 60-year-old male with chest pain, Covid positive. COMPARISON: 05/19/2021. EXAMINATION: Single view chest. FINDINGS: The cardiac contour is normal. There are increasing patchy bilateral alveolar infiltrates primarily perihilar and bilateral lower lobes. There is no effusion or pneumothorax. Soft tissues and bony thorax are normal. There is some prominence of the central vascularity. IMPRESSION: Patchy bilateral infiltrates in the mid and lower portions of both lungs, the pattern of which is in keeping with the patient's clinical history of Covid. Underlying central venous congestion is suggested but accentuated by the portable technique. Dictated by: Dictated on workstation # [id number] Dict: 05/29/211819 Trans: 05/29/211847 [facility] [id number] Interpreted by: NICHOLAS MAGALLANES MD Electronically signed by: NICHOLAS MAGALLANES MD 05/29/21 4128 Assessment/Plan Admission Diagnosis COVID19 Admission Status: Inpatient Order (span 2 midnights) Reason for Inpatient Admission: see below Assessment and Plan COVID19 Exertional hypoxia Started on Decadron and Remdesivir Not currently hypoxic Day 11 of symptoms outside of MAB timeframe Attempted outpatient management but did not due well Procal 0.33, continue doxycycline and rocephin MAT protocol IS Lovenox ppx still intermittently febrile DVT ppx: Lovenox Diagnosis/Problems Diagnosis/Problems (1) COVID-19 Status: Acute FRANCY ROLLINS MD May 30, 2021 11:45
[2021-05-30 12:00] VITALS: BP 140/72
[2021-05-30] MEDS: ACETAMINOPHEN 325 MG TABLET PO PRN (12:22)
[2021-05-30] MEDS ORDERED: CHOL100048 PO (13:51)
[2021-05-30] MEDS ORDERED: HYDR200T46 PO (13:51)
[2021-05-30] MEDS ORDERED: ACET-2267 PO (13:51)
[2021-05-30] MEDS ORDERED: ZINC50TA11 PO (13:51)
[2021-05-30] MEDS ORDERED: GUAI-836 PO (13:51)
[2021-05-30] MEDS ORDERED: PROM5SYR PO (13:51)
[2021-05-30] MEDS ORDERED: ASCO250T16 PO (13:51)
[2021-05-30] MEDS ORDERED: IBUP-2473 PO (13:51)
[2021-05-30] MEDS ORDERED: LANS15CA PO (13:51)
[2021-05-30] MEDS ORDERED: ASPI-1238 PO (13:51)
[2021-05-30 15:21] VITALS: BP 111/74
[2021-05-30] MEDS ORDERED: cefTRIAXone 1,000 MG/SWFI 10 ML IV PUSH IV SCH ×2 (18:00)
[2021-05-30 19:30] VITALS: BP 110/63
[2021-05-30] MEDS: ENOXAPARIN 40 MG/0.4 ML (LOVENOX) SYR SC SCH (20:48)
[2021-05-30 23:30] VITALS: BP 128/81
[2021-05-31] MEDS: ACETAMINOPHEN 325 MG TABLET PO PRN (01:46)
[2021-05-31 03:13] VITALS: BP 119/80
[2021-05-31] MEDS: CATHETER FLUSH 10 ML SYR IV SCH ×2 (06:12→14:50)
[2021-05-31 08:00] VITALS: BP 111/69
[2021-05-31] MEDS: dexAMETHasone 6 MG TAB (DECADRON) PO SCH (08:05)
[2021-05-31] MEDS: PANTOPRAZOLE 40 MG (PROTONIX) VIAL IV SCH (08:06)
[2021-05-31] MEDS: DOXYCYCLINE INJECTION 100 MG in NS (IVPB) 100 ML IV SCH (08:06)
[2021-05-31] MEDS ORDERED: REMDESIVIR 100 MG/NS 250 ML IVPB IV SCH ×2 (09:00)
[2021-05-31 12:00] VITALS: BP 103/63
--- NOTE | 2021-05-31 12:26 | Discharge Inst-Simple/Standard ---
Discharge Inst-Standard Patient Instructions/Follow Up Plan of Care/Instructions/FU: Please continue to take your medications as written. Please follow up with your primary care doctor to follow up this hospital stay. Activity as Tolerated: Yes Discharge Diet: No Restrictions Return to The Hospital For: Chest pain, shortness of breath, weakness, fever, if you feel you are getting worse. FRANCY ROLLINS MD May 31, 2021 12:25
--- NOTE | 2021-05-31 13:33 | Discharge Summary ---
Diagnosis/Chief Complaint Date of Admission May 29, 2021 at 18:48 Date of Discharge Discharge Date: May 31, 2021 Admission Diagnosis COVID19 Primary Care Carter Turner MD Discharge Diagnosis (1) COVID-19 Status: Acute Discharge Summary Discharge Physical Exam Allergies: Coded Allergies: Penicillins (Verified Allergy, Unknown, 08/09/17) Vitals & I&Os Vital Signs Date Time Temp Pulse Resp B/P (MAP) Pulse Ox O2 Delivery O2 Flow Rate FiO2 05/31/21 12:00 37.0 64 18 103/63 (76) 95 Room Air 05/29/21 22:06 21 Hospital Course Labs (last 24 hrs) Patient resulted labs reviewed. Imaging: Reviewed Imaging Report Discharge Home Medications: Active Scripts Active Reported Tylenol Sinus Severe Caplet (Guaifen/Phenyleph/Acetaminophn) 1 Each Tablet 2 Each PO DAILY PRN Tylenol Extra Strength (Acetaminophen) 500 Mg Tablet 1,000 Mg PO Q8H PRN Ibuprofen 200 Mg Tablet 400-600 Mg PO Q8H PRN Aspirin EC (Aspirin) 81 Mg Tablet.dr 81 Mg PO DAILY Zinc (Zinc Gluconate) 50 Mg Tablet 50 Mg PO DAILY Vitamin C (Ascorbic Acid) 250 Mg Tab 250 Mg PO DAILY Vitamin D3 (Cholecalciferol (Vitamin D3)) 25 Mcg Capsule 25 Mcg PO DAILY Prevacid 24Hr (Lansoprazole) 15 Mg Capsule.dr 15 Mg PO DAILY Prometh-Codein 6.25-10 mg/5 ml (Promethazine HCl/Codeine) 5 Ml Syrup 5-10 Ml PO Q6H PRN Hydroxychloroquine Sulfate 200 Mg Tablet 200 Mg PO BID FILLED 05-26-2021 #10/ DAY SUPPLY Instructions to patient/family Please see electronic discharge instructions given to patient. FRANCY ROLLINS MD May 31, 2021 13:33
[2021-05-31 14:53] VITALS: BP 103/63
== END 2021-05-31 15:15 | disposition home or self-care (01) | DRG 179 ==
LOC: EDUNIT# 16:49 → ER 16:52 → 4TH 18:48
PROVIDERS: ADMIT Internal Medicine; ATTEND Internal Medicine
PROC: XW033E5 Introduction of Remdesivir Anti-infective into Peripheral Vein, Percutaneous Approach, New Technology Group 5 (ICD-10-PCS; principal; 2021-05-30)
DX: U07.1 COVID-19 (principal); R09.02 Hypoxemia; Z73.0 Burn-out; Z88.0 Allergy status to penicillin; Z79.899 Other long term (current) drug therapy
CPT/HCPCS: 36415; 71045; 80053; 84145; 85025; 85379; 86141